=== PATIENT | male | born 1965 | race American Indian/Alaskan Native ===

== ENCOUNTER 2020-06-29 23:58 | Emergency (ER) | payer SELFPAY ==
[2020-06-30] MEDS ORDERED: ASPIRIN 325 MG TAB PO ONE (00:33)
[2020-06-30 01:09] LABS: Eosinophils # (Auto) 0.1 K/mm3 (0.0-0.4); Eosinophils % (Auto) 2.8 % (0.0-4.3); Hematocrit 40.9 % (35.5-45.6); Hemoglobin 13.5 gm/dl (11.8-15.2); Lymphocytes # (Auto) 1.1 K/mm3 (1.2-5.4); Mean Corpuscular HGB Conc 33 % (32-34); Mean Corpuscular Volume 84 fl (84-94); Monocytes # (Auto) 0.5 K/mm3 (0.0-0.8); Monocytes % (Auto) 11.2 % (0.0-7.3); Platelet Count 220 K/mm3 (140-440); Red Blood Count 4.85 M/mm3 (3.65-5.03); Red Cell Distribution Width 14.7 % (13.2-15.2)
[2020-06-30 01:17] LABS: BUN/Creatinine Ratio 12; Blood Urea Nitrogen 11 mg/dL (9-20); Calcium 9.5 mg/dL (8.4-10.2); Hemolysis Index 4
--- NOTE | 2020-06-30 01:25 | XRay Report ---
CHEST 1 VIEW 0102 INDICATION / CLINICAL INFORMATION: Chest Pain COMPARISON: None available. FINDINGS: SUPPORT DEVICES: None HEART / MEDIASTINUM: No significant abnormality. LUNGS / PLEURA: No significant pulmonary or pleural abnormality. No pneumothorax. ADDITIONAL FINDINGS: No significant additional findings. IMPRESSION: No significant acute abnormality Signer Name: Casa Sanchez MD Signed: 06/30/2020 1:20 AM Workstation Name: [id number]
--- NOTE | 2020-06-30 08:36 | Emergency Department Report ---
ED Chest Pain HPI - General Chief Complaint: Chest Pain Stated Complaint: CHEST PAIN Time Seen by Provider: 06/30/20 08:22 Source: patient Mode of arrival: Ambulatory Limitations: No Limitations - History of Present Illness Initial Comments: Chief complaint: Heartburn HPI this is a 55-year-old male with history of hyperlipidemia, coronary artery disease status post 3 cardiac stents, anxiety, hypertension who presents with chest burning sensation last night while driving. Denies shortness of breath. Denies sweats. Denies vomiting. The pain spontaneously relented. He does have heartburn with greasy foods. He was seen recently by signal tower operator. Further testing was unable to be performed due to hypertenion in the office. Recently chest burning has been associated with the intake of certain foods. MD Complaint: chest pain -: Gradual, Last night Onset: other Severity: moderate (While driving) Quality: other Consistency: now resolved Improves With: nothing Worsens With: other (food) Treatments Prior to Arrival: none - Related Data Allergies Allergy/AdvReac Type Severity Reaction Status Date / Time No Known Allergies Allergy Unverified 06/30/20 00:33 Heart Score - HEART Score History: Slightly suspicious EKG: Non-specific Age: 45-65 Risk factors: 1-2 risk factors Troponin: < normal limit HEART Score: 3 ED Review of Systems ROS: Stated complaint: CHEST PAIN Other details as noted in HPI Comment: All other systems reviewed and negative Cardiovascular: chest pain Gastrointestinal: denies: abdominal pain, nausea, vomiting ED Past Medical Hx - Past Medical History Previous Medical History?: Yes Hx Hypertension: Yes Hx Psychiatric Treatment: Yes (Anxiety) Additional medical history: Coronary artery disease. PUD. High Cholesterol - Surgical History Past Surgical History?: Yes Hx Coronary Stent: Yes - Family History Family history: CAD/AR (Father) - Social History Smoking Status: Former Smoker Substance Use Type: None ED Physical Exam - General Limitations: No Limitations General appearance: alert, in no apparent distress - Head Head exam: Present: atraumatic, normocephalic - Eye Eye exam: Present: normal appearance - ENT ENT exam: Present: mucous membranes moist - Neck Neck exam: Present: normal inspection - Respiratory Respiratory exam: Present: normal lung sounds bilaterally. Absent: respiratory distress, rhonchi - Cardiovascular Cardiovascular Exam: Present: regular rate, normal rhythm, normal heart sounds. Absent: systolic murmur, diastolic murmur, rubs, gallop - GI/Abdominal GI/Abdominal exam: Present: soft, normal bowel sounds. Absent: distended, tende rness, guarding, rebound - Rectal Rectal exam: Present: deferred - Extremities Exam Extremities exam: Present: normal inspection - Neurological Exam Neurological exam: Present: alert, oriented X3 - Psychiatric Psychiatric exam: Present: normal affect, normal mood - Skin Skin exam: Present: warm, dry, intact, normal color. Absent: rash ED Medical Decision Making - Lab Data Result diagrams: 06/30/20 00:41 06/30/20 00:41 Laboratory Results - last 24 hr 06/30/20 06/30/20 06/30/20 00:41 00:41 04:04 WBC 4.2 L RBC 4.85 Hgb 13.5 Hct 40.9 MCV 84 MCH 28 MCHC 33 RDW 14.7 Plt Count 220 Lymph % (Auto) 27.0 Hitchcock % (Auto) 11.2 H Eos % (Auto) 2.8 Baso % (Auto) 1.0 Lymph # (Auto) 1.1 L Hitchcock # (Auto) 0.5 Eos # (Auto) 0.1 Baso # (Auto) 0.0 Seg Neutrophils % 58.0 Seg Neutrophils # 2.4 Sodium 138 Potassium 3.8 Chloride 98.8 Carbon Dioxide 26 Anion Gap 17 BUN 11 Creatinine 0.9 Estimated GFR > 60 BUN/Creatinine Ratio 12 Glucose 273 H Calcium 9.5 Troponin T < 0.010 < 0.010 06/30/20 06:59 WBC RBC Hgb Hct MCV MCH MCHC RDW Plt Count Lymph % (Auto) Hitchcock % (Auto) Eos % (Auto) Baso % (Auto) Lymph # (Auto) Hitchcock # (Auto) Eos # (Auto) Baso # (Auto) Seg Neutrophils % Seg Neutrophils # Sodium Potassium Chloride Carbon Dioxide Anion Gap BUN Creatinine Estimated GFR BUN/Creatinine Ratio Glucose Calcium Troponin T < 0.010 - EKG Data 06/30/20 08:36 EKG obtained 0011 EKG interpreted by me Normal sinus rhythm normal axis normal intervals no ST elevation QS complexes V1 V2 nonspecific T wave pattern - Radiology Data Radiology results: report reviewed Chest radiograph: No significant abnormality according to radiology impression - Medical Decision Making Mr. Caruso is a 55-year-old male with history of coronary disease status post 3 cardiac stents, most recent cardiac intervention occurred 2 years ago. He also has a history of hypertension peptic ulcer disease and anxiety. Chest pain atypical for ACS. Not associated with exertion. Appears to be associated with food intake. Troponin x3 all negative. EKG absent of signs of ischemia I recommended diet changes. Also recommended referral with a signal tower operator. I have faxed referral request form to the [facility]. Patient is currently chest pain-free. He is discharged home. Critical care attestation.: If time is entered above; I have spent that time in minutes in the direct care of this critically ill patient, excluding procedure time. ED Disposition Clinical Impression: Chest pain, History of coronary artery disease Disposition: DC-01 TO HOME OR SELFCARE Is pt being admited?: No Does the pt Need Aspirin: No Condition: Stable Instructions: Chest Pain (ED), Nonspecific Chest Pain, Adult, [id number] Referrals: SHIRLEY KHAN MD [Staff Physician] - 3-5 Days
[2020-06-30 08:59] VITALS: BP 155/76
== END 2020-06-30 08:57 | disposition home or self-care (01) ==
LOC: ED 23:58
DX: R07.89 Other chest pain (principal); I25.10 Atherosclerotic heart disease of native coronary artery without angina pectoris; I10 Essential (primary) hypertension; F41.9 Anxiety disorder, unspecified; Z98.890 Other specified postprocedural states; Z87.891 Personal history of nicotine dependence
CPT/HCPCS: 36415; 71045; 80048; 84484; 85025; 93005